=== PATIENT | male | born 1955 | race Caucasian/White ===

== ENCOUNTER 2025-01-01 11:15 | Emergency (ER) | payer OTHER ==
[2025-01-01] MEDS ORDERED: NA CHLORIDE 0.9% 1,000 ML ONE (12:05)
[2025-01-01 12:31] LABS: Absolute Lymphocytes (CBC) 0.9 K/uL (0.7-4.9); Hematocrit 41.8 % (39.6-49.0); Hemoglobin 13.4 g/dL (13.6-17.9); MCH 26.2 pg (27.0-35.0); MCHC 32.0 g/dL (32.0-36.0); MCV 82.0 fL (80-100); MPV 8.8 fL (7.6-11.3); Nucleated RBC Absolute Count 0.0 (0-0); Nucleated Red Blood Cells % 0.0 % (0-0); RBC Red Blood Cell Count 5.10 M/uL (4.33-5.43); White Blood Count 5.80 thou/uL (4.3-10.9)
[2025-01-01 12:38] LABS: PT Prothrombin Time 11.4 SECONDS (10-13.0); PTT, Activated Partial Thromb 25.8 SECONDS (27.2-37.4); Protime INR 1.01
[2025-01-01 12:53] LABS: ALT/SGPT 29 U/L (16-61); Albumin 3.8 g/dL (3.4-5.0); Albumin/Globulin Ratio 0.7 (1.1-1.8); Alkaline Phosphatase 66 U/L (45-117); Anion Gap 13.0 mEq/L (5.0-15.0); BUN Blood Urea Nitrogen 12 mg/dL (7-18); Bilirubin Indirect, Calculated 0.6 mg/dL (0.2-0.8); Globulin 5.1 g/dL (2.3-3.5); Glucose Level 86 mg/dL (74-106)
[2025-01-01 12:56] LABS: AST/SGOT 51 U/L (15-37); Potassium 5.0 mEq/L (3.5-5.1)
[2025-01-01] MEDS ORDERED: CEPHALEXIN 250 MG CAP ONE (13:31)
[2025-01-01 13:41] LABS: Anisocytosis 1+; Blood Morphology Comment NOTED (NOT SEEN); White Blood Cell Scan OK (OK)
[2025-01-01 13:45] LABS: Sqamous Epithelial <5 /HPF (None Seen); Urine Culture Reflex Order NOT NEEDED; Urine Microscopic Reflex YN ORDER UMIC
[2025-01-01 13:47] LABS: METHAMPHETAM NEGATIVE (NEGATIVE); THC Cannibis POSITIVE (NEGATIVE)
[2025-01-01] MEDS ORDERED: LORazepam 2 MG/ML VIAL ONE (15:23)
--- NOTE | 2025-01-01 15:53 | EDPHYS ---
Physician Documentation [facility] Name: Lai Gonzalez Age: 69 yrs Sex: Male : 1955 Arrival Date: 01/01/2025 Time: 11:15 Bed 16 Private MD: ED Physician Cameron Glez HPI: 01/01 13:10 This 69 yrs old Male presents to ER via EMS with complaints of Leg Pain, dr5 Suicidal Ideation. 13:10 Onset: The symptoms/episode began/occurred 1 month(s) ago. Patient is a 69-year-old dr5 male with history of hypertension, gout, OCD, bipolar disorder, anxiety, neuropathy, previous psychiatric illnesses coming in with suicidal ideation for the past couple days. Patient states "I have researched over 100 ways to kill myself". Patient denies audio/visual hallucinations. Patient denies homicidal ideation. Patient reports bilateral lower extremity pain and chronic wounds to bilateral lower legs. Patient denies fever, discharge from wounds, or pain.. Historical: - Allergies: 11:35 No Known Allergies; dd2 - PMHx: 11:35 Hypertensive disorder; Gout; OCD; Bipolar disorder; Anxiety; NEUROPATHY; dd2 - PSHx: 11:35 None; dd2 - Immunization history:: Adult Immunizations up to date, Client reports receiving the 2nd dose of the Covid vaccine, Flu vaccine is up to date. - Infectious Disease History:: Denies. - Social history:: Smoking status: Patient denies any tobacco usage or history of. Patient uses street drugs, marijuana. ROS: 13:24 Constitutional: as per hpi dr5 Exam: 13:24 Constitutional: This is a well developed, well nourished patient who is awake, alert, dr5 and in no acute distress. Head/Face: Normocephalic, atraumatic. Eyes: Pupils equal round and reactive to light, extra-ocular motions intact. Lids and lashes normal. Conjunctiva and sclera are non-icteric and not injected. Cornea within normal limits. Periorbital areas with no swelling, redness, or edema. Neck: Trachea midline, no thyromegaly or masses palpated, and no cervical lymphadenopathy. Supple, full range of motion without nuchal rigidity, or vertebral point tenderness. No Meningismus. Chest/axilla: Normal chest wall appearance and motion. Nontender with no deformity. No lesions are appreciated. Cardiovascular: Regular rate and rhythm with a normal S1 and S2. Normal PMI, no JVD. No pulse deficits. Respiratory: Lungs have equal breath sounds bilaterally, clear to auscultation. No rales, rhonchi or wheezes noted. No increased work of breathing, no retractions or nasal flaring. Back: No spinal tenderness. No costovertebral tenderness. Full range of motion. Skin: Warm, dry with normal turgor. Normal color with no rashes, no lesions, and no evidence of cellulitis. Multiple lesions noted to bilateral lower legs in various stages of healing. No tenderness to palpation, no discharge from wounds. MS/ Extremity: Pulses equal, no cyanosis. Neurovascular intact. Full, normal range of motion. Neuro: Awake and alert, GCS 15, oriented to person, place, time, and situation. Cranial nerves II-XII grossly intact. Motor strength 5/5 in all extremities. Sensory grossly intact. Cerebellar exam normal. Normal gait. Psych: Awake, alert, with orientation to person, place and time. Behavior, mood, and affect are within normal limits. Patient currently reports suicidal ideation but does not have a plan. Patient is agreeable to talk to [facility]. Vital Signs: 11:23 BP 116 / 78; Pulse 102; Resp 16; Temp 98; Pulse Ox 99% on R/A; Weight 81.19 kg; Pain dd2 10/10; 12:01 BP 115 / 77; Pulse 99; Resp 16; Temp 96.8; Pulse Ox 100% ; ts3 16:55 BP 143 / 77; Pulse 108; Resp 20; Temp 98; Pulse Ox 100% ; kj2 11:23 Pain Scale: Adult dd2 MDM: 11:19 Medical Screening Exam initiated rn 13:31 ED course: I personally sent urine to lab for UDS and UA. Will have [place] [id number] psychiatric evaluate for further recommendations.. 17:03 Differential diagnosis: contusion, abrasion, Cellulitis, suicidal ideation, bipolar dr5 disorder, manic disorder. Data reviewed: vital signs, nurses notes, lab test result(s), CBC, white blood cell count, hemoglobin, hematocrit, platelets, drug level(s), acetaminophen, alcohol, salicylate, electrolytes, sodium, potassium, chloride, serum bicarbonate, BUN, creatinine, serum glucose, urinalysis, EKG. Consideration of Admission/Observation Patient was admitted/placed on observation. Management of patient was discussed with the following: Lithographic Etcher: Psychiatrist. I considered the following discharge prescriptions or medication management in the emergency department I discussed and recommended Over The Counter medications, Medications were administered in the Emergency Department. See MAR. Care significantly affected by the following chronic conditions: Hypertension, gout, OCD, bipolar disorder, anxiety, neuropathy. Care significantly affected by the following Social Determinants of Health: Poor access to healthcare and/or lack of insurance, Poor access to transportation, Problems related to employment. Counseling: I had a detailed discussion with the patient and/or guardian regarding the historical points, exam findings, and any diagnostic results supporting the discharge/admit diagnosis, the presence of at least one elevated blood pressure reading (>120/80) during this emergency department visit, lab results, radiology results, the need to transfer to another facility, for higher level of care, [facility] does not immediately have the required specialist, Patient requires psychiatric evaluation. Medication response: Ativan. Response to treatment: the patient's symptoms have markedly improved after treatment. Special discussion:. Special discussion: Based on the history and exam findings, there is no indication for further emergent testing or inpatient evaluation. I discussed with the patient/guardian the need to see the psychiatrist for further evaluation of the symptoms. ED course: [facility] psychiatric evaluated patient and recommended inpatient psych. Will transfer patient to inpatient psych for further management. All question answered. Patient is agreeable to go to.. 01/01 11:23 Order name: Acetaminophen; Complete Time: 13:01/01 11:23 Order name: Basic Metabolic Panel; Complete Time: 13:01/01 11:23 Order name: CBC with Diff; Complete Time: 13:44 01/01 11:23 Order name: ETOH Level; Complete Time: 13:22 01/01 11:23 Order name: Hepatic Function; Complete Time: 13:04 01/01 11:23 Order name: PT-INR; Complete Time: 12:45 01/01 11:23 Order name: Ptt, Activated; Complete Time: 12:45 01/01 11:23 Order name: Salicylate; Complete Time: 13:04 01/01 11:23 Order name: Urine Drug Screen; Complete Time: 13:49 [facility] 01/01 11:23 Order name: UA Rfx Clemente Cult if indicated; Complete Time: 13:47 [facility] 01/01 12:35 Order name: CBC Smear Scan; Complete Time: 13:44 [facility] 01/01 11:23 Order name: EKG - Nurse/Tech; Complete Time: 12:00 dr5 01/01 11:23 Order name: IV Saline Lock; Complete Time: 12:18 dr5 01/01 11:23 Order name: Labs collected and sent; Complete Time: 12:18 dr5 01/01 11:23 Order name: Suicide Screening ([place]); Complete Time: 12:12 dr5 EC:41 Rate is 97 beats/min. Rhythm is regular. QRS Means is Normal. WV interval is normal at dr5 164 msec. QRS interval is normal at 82 msec. QT interval is normal at 378 msec. Clinical impression: Normal ECG and No evidence of ischemia. Administered Medications: 12:14 Drug: NS 0.9% IV 1000 ml IV at 1000 ml once; to be given as a bolus over 60 minutes dd2 Route: IV; Rate: 1000 ml; Site: right forearm; 16:54 Follow up: IV Status: Completed infusion; IV Intake: 1000ml kj2 13:38 Drug: Cephalexin PO 500 mg PO once Route: PO; kj2 16:28 Follow up: Response: No adverse reaction kj2 15:27 Drug: Ativan IVP 1 mg IVP once Route: IVP; Site: right hand; kj2 16:28 Follow up: Response: No adverse reaction kj2 Disposition Summary: 01/01/25 15:52 Transfer Ordered Notes: Transfer Location: Psych Facility dr5 Reason: Higher level of care dr5 Condition: Stable dr5 Problem: new dr5 Symptoms: have worsened dr5 Accepting Physician: Dr. Friend(01/01/25 17:00) ll1 Diagnosis - Suicidal ideations dr5 Forms: - Medication Reconciliation Form dr5 - SBAR form dr5 Addendum: 01/06/2025 06:58 Co-signature as Attending Physician, Cameron Glez MD I reviewed the patient's care r n provided by the Advanced Practice Provider and agree with the diagnosis and treatment plan. Signatures: Dispatcher [employer] EDCameron Slater MD MD rn Lewis, Lynsay, RN RN ll1 Diamond Rosas RN RN kj2 RILEY FORD RN RN dd2 Suarez, Stephen, VERTICAL LATHE OPERATOR-C VERTICAL LATHE OPERATOR-Cdr5 Corrections: (The following items were deleted from the chart) 01/01 11:24 11:24 ACETAMINOPHEN+C.LAB.BRZ ordered. EDMS EDMS 11:24 11:24 BASIC METABOLIC PANEL+C.LAB.BRZ ordered. EDMS EDMS 11:24 11:24 CBC+H.LAB.BRZ ordered. EDMS EDMS 11:24 11:24 ETHANOL+C.LAB.BRZ ordered. EDMS EDMS 11:24 11:24 HEPATIC FUNCTION+C.LAB.BRZ ordered. EDMS EDMS 11:24 11:24 PROTIME (+INR)+COAG.LAB.BRZ ordered. EDMS EDMS 11:24 11:24 PTT, ACTIVATED+COAG.LAB.BRZ ordered. EDMS EDMS 11:24 11:24 SALICYLATE+C.LAB.BRZ ordered. EDMS EDMS 11:24 11:24 URINE DRUG SCREEN+UC.LAB.BRZ ordered. EDMS EDMS 11:24 11:24 UA Rfx Clemente Cult if indicated+U.LAB.BRZ ordered. EDMS EDMS 17:00 15:52 Dr[address] Friend dr5 ll1
--- NOTE | 2025-01-01 15:53 | ER ---
Nurse's Notes [facility] Name: Lai Gonzalez Age: 69 yrs Sex: Male : 1955 Arrival Date: 01/01/2025 Time: 11:15 Bed 16 Private MD: Diagnosis: Suicidal ideations Presentation: 01/01 11:23 Chief complaint: EMS states: pt called for juancho feet pain, swelling and redness. pt dd2 reports this has been going on for 1 month. pt also expressed suicidal ideation en route to EMS. Pt reports SI for the past 3 - 4 days, that he's researched many different ways and that pills would probably be the easiest. Pt also reports he has been treated before in the past for suicidal ideation. Coronavirus screen: At this time, the client does not indicate any symptoms associated with coronavirus-19. Ebola Screen: No symptoms or risks identified at this time. Initial Sepsis Screen: Does the patient meet any 2 criteria? No. Patient's initial sepsis screen is negative. Does the patient have a suspected source of infection? No. Patient's initial sepsis screen is negative. Risk Assessment: Do you want to hurt yourself or someone else? Patient reports desire/thoughts of hurting themselves or someone else. Provider notified. Onset of symptoms is unknown. 11:23 Method Of Arrival: [facility] dd2 11:23 Acuity: SHUN 2 dd2 Triage Assessment: 11:35 General: Appears in no apparent distress. uncomfortable, Behavior is cooperative, dd2 appropriate for age, anxious. Pain: Complains of pain in right foot and left foot Pain currently is 10 out of 10 on a pain scale. EENT: No deficits noted. No signs and/or symptoms were reported regarding the EENT system. Neuro: No deficits noted. Level of Consciousness is awake, alert, obeys commands, Oriented to person, place, time, situation, Appropriate for age. Cardiovascular: No deficits noted. Patient's skin is warm and dry. Respiratory: No deficits noted. Airway is patent Respiratory effort is even, unlabored, Respiratory pattern is regular, symmetrical. GI: No deficits noted. No signs and/or symptoms were reported involving the gastrointestinal system. : No deficits noted. No signs and/or symptoms were reported regarding the genitourinary system. Derm: Skin is red, Wound noted right foot, left foot, right leg and left leg SCABBED WOUNDS TO BLE AND JUANCHO FEET. BEATRICE-WOUND TISSUE RED Reports pain that is 10 out of 10 on a pain scale. Musculoskeletal: Circulation, motion, and sensation intact. Range of motion: intact in all extremities, Swelling present in left foot. Historical: - Allergies: 11:35 No Known Allergies; dd2 - PMHx: 11:35 Hypertensive disorder; Gout; OCD; Bipolar disorder; Anxiety; NEUROPATHY; dd2 - PSHx: 11:35 None; dd2 - Immunization history:: Adult Immunizations up to date, Client reports receiving the 2nd dose of the Covid vaccine, Flu vaccine is up to date. - Infectious Disease History:: Denies. - Social history:: Smoking status: Patient denies any tobacco usage or history of. Patient uses street drugs, marijuana. Screenin:41 [facility] ED Fall Risk Assessment (Adult) History of falling in the last 3 months, dd2 including since admission Yes- single mechanical fall (1 pt) Confusion or Disorientation No (0 pts) Intoxicated or Sedated No (0 pts) Impaired Gait No (0 pts) Mobility Assist Device Used No (0 pt) Altered Elimination No (0 pt) Score/Fall Risk Level 0 - 2 = Low Risk Oriented to surroundings, Maintained a safe environment, Educated pt \\T\\ family on fall prevention, incl call for assistance when getting out of bed, Assessed \\T\\ reinforced patient's understanding of fall precautions, Hourly rounding (assess needs \\T\\ fall precautionary measures) done. Abuse screen: Denies threats or abuse. Denies injuries from another. Nutritional screening: No deficits noted. Tuberculosis screening: No symptoms or risk factors identified. Assessment: 11:39 Reassessment: SEE TRIAGE ASSESSMENT FOR FULL ASSESSMENT. dd2 12:10 Reassessment: Patient appears in no apparent distress at this time. Patient and/or kj2 family updated on plan of care and expected duration. Pain level reassessed. Patient is alert, oriented x 3, equal unlabored respirations, skin warm/dry/pink. 13:10 Reassessment: Patient appears in no apparent distress at this time. Patient and/or kj2 family updated on plan of care and expected duration. Pain level reassessed. Patient is alert, oriented x 3, equal unlabored respirations, skin warm/dry/pink. 14:10 Reassessment: Patient appears in no apparent distress at this time. Patient and/or kj2 family updated on plan of care and expected duration. Pain level reassessed. Patient is alert, oriented x 3, equal unlabored respirations, skin warm/dry/pink. 14:40 Reassessment: visiting with [facility]. kj2 15:10 Reassessment: Patient appears in no apparent distress at this time. Patient and/or kj2 family updated on plan of care and expected duration. Pain level reassessed. Patient is alert, oriented x 3, equal unlabored respirations, skin warm/dry/pink. 15:46 Reassessment: July from [facility] will accept the patient. kj2 16:10 Reassessment: Patient appears in no apparent distress at this time. Patient and/or kj2 family updated on plan of care and expected duration. Pain level reassessed. Patient is alert, oriented x 3, equal unlabored respirations, skin warm/dry/pink. 16:53 Reassessment: security called for belongings. kj2 Psych: 11:39 [place] Suicide Severity Screening: In the past month, have you wished you were dd2 or wished you could go to sleep and not wake up? Patient responds "yes." Based off the client's responses additional C-SSRS screening is required. "In the past month, have you actually had any thoughts of killing yourself?" Patient responds "yes." Based off the client's response additional [place] suicide severity screening questions to be further documented on paper forms. "In your lifetime, have you ever done anything, started to do anything, or prepared to do anything to end your life?" Patient responds "yes." Patient reports suicidal intent occurred greater than 3 months prior. Subjective: Patient's mood is WNL Delusions are denied, Hallucinations are denied Having thoughts of suicide. Plan for suicide is PT REPORTS HE HAS RESEARCHED MANY WAYS TO COMMIT SUICIDE AND THAT PILLS WOULD "PROBABLY" BE HIS WAY. Objective: Patient is cooperative, Speech is normal, Affect is appropriate. Interventions: Removed personal items and placed in bag. Patient placed in hospital gown. Searched person for dangerous items. Safety Checks: Personal items have been removed. Door is open. No visitors are present at this time. Patient uses marijuana one joint "OCCASIONALLY". Commitment: Patient will be a voluntary commitment. Vital Signs: 11:23 BP 116 / 78; Pulse 102; Resp 16; Temp 98; Pulse Ox 99% on R/A; Weight 81.19 kg; Pain dd2 10/10; 12:01 BP 115 / 77; Pulse 99; Resp 16; Temp 96.8; Pulse Ox 100% ; ts3 16:55 BP 143 / 77; Pulse 108; Resp 20; Temp 98; Pulse Ox 100% ; kj2 11:23 Pain Scale: Adult dd2 ED Course: 11:16 Patient arrived in ED. eb 11:19 Cameron Glez MD is Attending Physician. rn 11:21 Stephen Suarez FNP-C is PHCP. rn 11:34 Triage completed. dd2 11:35 Arm band placed on right wrist. dd2 11:41 Patient has correct armband on for positive identification. Bed in low position. Side dd2 rails up X 1. PT PLACED IN [facility] APPROVED SCRUBS. SITTER AT BEDSIDE. Patient is placed in psych hold. 11:41 No provider procedures requiring assistance completed. Patient maintains SpO2 dd2 saturation greater than 95% on room air. 12:01 EKG done, by career guidance technician. reviewed by Stephen PRABHAKAR. ts3 12:10 initiated a transfer with [facility] from the [place] transfer center/ per [facility] we have to eb get [facility] to come screen the patient / once that screening is done to fax the patient clinical information to them and she will send to her psych team/. 12:10 Provided Education on: fall prevention, safety. kj2 12:18 Acetaminophen Sent. em1 12:18 Basic Metabolic Panel Sent. em1 12:18 CBC with Diff Sent. em1 12:18 ETOH Level Sent. em1 12:18 Hepatic Function Sent. em1 12:18 PT-INR Sent. em1 12:18 Ptt, Activated Sent. em1 12:18 Salicylate Sent. em1 12:18 Initial lab(s) drawn, by de, sent to lab. Inserted saline lock: 20 gauge in right em1 forearm, using aseptic technique. Blood collected. Flushed with 10 mL NS. 13:27 Diamond Rosas, RN is Primary Nurse. kj2 15:01 faxed patient clinical information to the [place] with [facility] recommendations to the [place] eb and notified Sushma from the Transfer Center. 15:06 faxed patient clinical information to [facility] in eb attempt to find placement. 15:42 connected July Rn from [facility] with Diamond Rn for nurse to nurse. eb 15:45 administrative approval given by Maria Esther Frazier / patient has been accepted to [facility]/ Dr. Concepcion has accepted the patient in transfer without consultation with the provider/. 15:49 [facility] placed on auto eb hold for 20 minutes/ EMS called for transport. 16:53 IV discontinued, intact, bleeding controlled, No redness/swelling at site. Pressure kj2 dressing applied. Administered Medications: 12:14 Drug: NS 0.9% IV 1000 ml IV at 1000 ml once; to be given as a bolus over 60 minutes dd2 Route: IV; Rate: 1000 ml; Site: right forearm; 16:54 Follow up: IV Status: Completed infusion; IV Intake: 1000ml kj2 13:38 Drug: Cephalexin PO 500 mg PO once Route: PO; kj2 16:28 Follow up: Response: No adverse reaction kj2 15:27 Drug: Ativan IVP 1 mg IVP once Route: IVP; Site: right hand; kj2 16:28 Follow up: Response: No adverse reaction kj2 Medication: 11:41 VIS not applicable for this client. dd2 Intake: 16:54 IV: 1000ml; Total: 1000ml. kj2 Outcome: 15:52 ER care complete, transfer ordered by . dr5 16:52 Transferred by ground EMS kj2 16:52 Condition: stable 16:52 Instructed on the need for transfer, Demonstrated understanding of instructions, follow-up care, 17:00 Patient left the ED. ll1 Signatures: Cameron Glez MD MD rn Martinez, Eric em1 Dilcia Billings Lynsay RN RN ll1 Diamond Rosas, RN RN kj2 RILEY FORD RN RN dd2 Stephen Suarez, SHAWN-C FORESTRY FIRE AIDE-5 Shayy Davis 3
[2025-01-01 17:06] VITALS: O2SAT 100
[2025-01-01 17:08] VITALS: BP 143/77; TEMP 98
== END 2025-01-01 17:00 ==
LOC: ER 11:15
DX: R45.851 Suicidal ideations (principal); I10 Essential (primary) hypertension; M10.9 Gout, unspecified; F41.9 Anxiety disorder, unspecified; F31.9 Bipolar disorder, unspecified; G62.9 Polyneuropathy, unspecified
CPT/HCPCS: 96361; 93005; 85025; 81001; 80048; 36415; 85610; 80076; 85730; 80307; 96374; 99285; 80143; 80179; 82077; J7030